=== PATIENT | female | born 1985 | race Caucasian/White ===

== ENCOUNTER → 2021-03-29 14:41 | Outpatient (CLI) | payer OTHER, SELFPAY ==
[2021-03-29 17:05] LABS: Hemoglobin A1C% w Est Avg Glu 4.5 % (4.0-6.0)
[2021-03-29 18:02] LABS: Thyroid Stimulating Hormone 2.57 uIU/mL (0.47-4.68)
[2021-03-29 21:48] LABS: Follicle Stimulating Hormone 3.23 mIU/mL; Luteinizing Hormone 6.64 mIU/mL
[2021-03-30 00:04] LABS: Rubella Antibody IgG 79.9 IU/mL (>15)
[2021-03-30 08:36] LABS: Varicella IgG Antibody 508 index (Immune >165)
== END ==
PROVIDERS: Referring Provider Obstetrics & Gynecology; Visit Provider Obstetrics & Gynecology
DX: Z31.69 Encounter for other general counseling and advice on procreation (principal)
CPT/HCPCS: 36415; 83001; 83002; 83036; 84439; 84443; 86762; 86787